=== PATIENT | male | born 1990 ===

== ENCOUNTER 2020-11-23 02:26 | Emergency (ER) | payer OTHER, SELFPAY ==
--- NOTE | ~2020-11-23 | US_ITS ---
EXAMINATION: US SOFT TISSUE, CLAVICLE CLINICAL INFORMATION: Left mid clavicular lump for 2 days, tender to touch. COMPARISON: None TECHNIQUE: Ultrasound of the soft tissues along the left clavicle was performed in a targeted fashion FINDINGS: There are 2 well-circumscribed hypoechoic structures along the mid clavicle. One structure measures 1.8 x 1.0 x 1.4 cm, the other measures 1.0 x 0.9 x 0.9 cm. Central and eccentric blood flow is present. These likely represent enlarged lymph nodes. US/US soft tiss head and/or neck IMPRESSION: The palpable lumps adjacent to the left clavicle represent mildly enlarged lymph nodes.
[2020-11-23 02:45] VITALS: BP 128/61; PULSE 64; RESP 18; TEMP 36.9; O2SAT 98; BMI 50.1
[2020-11-23 02:49] VITALS: BP 122/66; PULSE 64; RESP 18; TEMP 36.9; O2SAT 98
--- NOTE | 2020-11-23 04:17 | ED_ITS ---
HPI - General Adult General Chief complaint: General Medical Stated complaint: lump on clavicle Time Seen by Provider: 11/23/20 04:16 Source: patient Mode of arrival: ambulatory History of Present Illness HPI narrative: 30-year-old male without significant past medical history who presents with noticing to masses at his left clavicle approximately 2 days ago and he denies any associated fever, chills, night sweats, unexplained weight los s, cough, decrease in appetite, early satiety, pain in the stomach and denies any trauma to the area. Related Data Home Medications Medication Instructions Recorded Confirmed No Known Home Meds 11/14/19 11/14/19 Allergies Allergy/AdvReac Type Severity Reaction Status Date / Time aspirin [ASPIRIN] Allergy Unknown UNKNOWN, Unverified 11/14/19 16:07 Hives penicillin V Allergy Unknown Hives Unverified 11/14/19 16:07 Penicillins [PENICILLINS] Allergy Unknown UNKNOWN Unverified 11/14/19 16:07 Shellfish Allergy Unknown Anaphylaxis Uncoded 11/14/19 16:07 Review of Systems Review of Systems: Pertinent positives and negatives as stated in HPI 10 point review of systems is otherwise negative. PMFSH Past Medical History Source: nursing notes reviewed Medical History Morbid obesity Syndesmotic disruption of right ankle Family History Family History Father Diabetes Cirrhosis Mother No problems noted. Maternal Grandmother Diabetes Social History Social History Alcohol intake: never Patient Tobacco Use Status: Never used Tobacco Use of substances other than those prescribed or required for medical reasons: No Advance Directives: No Advance Directives Information Provided: Yes Physical Exam Vital Signs: Vital Signs: Last Vital Signs Temp 98.4 F 11/23/20 02:49 Pulse 66 11/23/20 05:59 Resp 16 11/23/20 05:59 BP 120/54 L 11/23/20 05:59 Pulse Ox 97 11/23/20 05:59 Body Mass Index 50.1 VITAL SIGNS: Reviewed. GENERAL: Obese, Well developed, well nourished, in no acute distress. HEAD: Normocephalic/atraumatic EYES: PERRLA, EOMI OROPHARYNX: no oral lesions noted, posterior pharynx clear and non-erythematous without noted tonsillar enlargement/erythema/exudates NECK: Supple, no adenopathy, palpation along left clavicle yields an approximate 2 cm mobile mass that is non erythematous and without induration but with slight tenderness on palpation, there is also a noted approximate 3 cm mobile mass immediate next to the other mass without erythema or induration but ten derness on palpation. LUNGS: Normal breath sounds. No adventitious sounds or accessory muscle use. S pO2<98> CARDIOVASCULAR: Regular rate and rhythm without noted murmurs ABDOMEN: Soft, non-tender, non-distended with bowel sounds. SKIN: Inspection of the skin reveals no rashes NEUROLOGIC: Alert and oriented x 4. Strength and sensation to light touch were grossly intact x 4. Course Course Course Narrative: 30-year-old male with history and clinical presentation suggestive of possible reactive adenopathy but will obtain ultrasound and basic labs. There are no B symptoms. Review of all investigations without acute findings other than to enlarged lymph nodes. Although felt to be reactive patient was strongly encouraged to follow- up with his primary care provider for re-evaluation further outpatient management. Medical Decision Making Lab Data Result diagrams: 11/23/20 04:24 11/23/20 04:24 Labs: Lab Results 11/23/20 11/23/20 Range/Units 04:24 04:24 WBC 10.0 (4.8-10.8) X10*3/uL RBC 4.16 L (4.60-5.80) X10*6/uL Hgb 12.0 L (14.0-18.0) g/dl Hct 36.8 L (42-52) % MCV 88.5 (80-98) fL MCH 28.8 (27.0-33.0) pg MCHC 32.6 (31.0-36.0) g/dl RDW 12.5 (11.0-16.0) % Plt Count 269 (160-400) X10*3/uL MPV 10.3 (9.4-12.4) fL Immature Gran % (Auto) 0.2 (0.0-0.4) % Neut % (Auto) 59.5 (45-73) % Lymph % (Auto) 27.1 (20-40) % Will % (Auto) 10.1 (2-11) % Eos % (Auto) 2.6 (0-4) % Baso % (Auto) 0.5 (0-2) % Lymph # (Auto) 2.7 (1.2-4.9) X10*3/uL Will # (Auto) 1.0 (0.1-1.2) X10*3/uL Eos # (Auto) 0.3 (0.0-0.4) X10*3/uL Baso # (Auto) 0.1 (0.0-0.2) X10*3/uL Abs Immat Gran (auto) 0.02 (0.00-0.03) X10*3/uL Absolute Neuts (auto) 5.9 (2.0-8.3) X10*3/uL Absolute Nucleated RBC 0.000 (0.0-0.012) X10*3/uL Nucleated RBC % (auto) 0.0 (0.0-0.2) /100WBC Sodium 140 (135-145) mmol/L Potassium 4.0 (3.3-5.1) mmol/L Chloride 109 H (96-108) mmol/L Carbon Dioxide 24 (22-29) mmol/L Anion Gap 11 L (12-20) BUN 15 (9-16) mg/dL Creatinine 0.80 (0.5-1.4) mg/dL Estim Creat Clear Calc 219.0 Estimated GFR > 60 Random Glucose 109 (60-115) mg/dL Calcium 8.9 (8.4-10.2) mg/dL Total Bilirubin 0.3 (0.0-1.0) mg/dL AST 16 (5-37) U/L ALT 17 (0-40) U/L Alkaline Phosphatase 54 (39-117) U/L Total Protein 6.7 (6.5-8.0) g/dL Albumin 3.9 (3.5-5.0) g/dL Discharge Plan Discharge Clinical Impression: Adenopathy Patient Disposition: Home, Self-Care Instructions: Lymphadenopathy (ED) Additional Instructions: Follow-up with your primary care provider on Tuesday morning for re-evaluation and further outpatient management. Recommend taking over the counter Tylenol/ibuprofen as needed for pain control. Return to the ER for acute worsening symptoms. Referrals: lAy Guardado, [employer] [Primary Care Provider] - 2 days (Left supraclavicular adenopathy without B symptoms)
[2020-11-23 04:28] LABS: Basophils Absolute Auto 0.1 X10*3/uL (0.0-0.2); Basophils Percent Auto 0.5 % (0-2); Eosinophils Absolute Auto 0.3 X10*3/uL (0.0-0.4); Eosinophils Percent Auto 2.6 % (0-4); Hematocrit 36.8 % (42-52); Imm Gran Abs Auto 0.02 X10*3/uL (0.00-0.03); Imm Gran Pct Auto 0.2 % (0.0-0.4); Lymphocytes Absolute Auto 2.7 X10*3/uL (1.2-4.9); Lymphocytes Percent Auto 27.1 % (20-40); MANUAL DIFF FLAG NO; Mean Corpuscular HGB Conc 32.6 g/dl (31.0-36.0); Mean Corpuscular Hemoglobin 28.8 pg (27.0-33.0); Mean Corpuscular Volume 88.5 fL (80-98); Mean Platelet Volume 10.3 fL (9.4-12.4); Monocytes Percent Auto 10.1 % (2-11); Neutrophils Absolute Auto 5.9 X10*3/uL (2.0-8.3); Neutrophils Percent Auto 59.5 % (45-73); Platelet Count 269 X10*3/uL (160-400); Red Blood Count 4.16 X10*6/uL (4.60-5.80); Red Cell Distribution Width 12.5 % (11.0-16.0)
[2020-11-23 04:48] LABS: Alanine Aminotransferase 17 U/L (0-40); Albumin Level 3.9 g/dL (3.5-5.0); Alkaline Phosphatase 54 U/L (39-117); Anion Gap 11 (12-20); Aspartate Amino Transferase 16 U/L (5-37); Bilirubin Total 0.3 mg/dL (0.0-1.0); Blood Urea Nitrogen 15 mg/dL (9-16); Calcium 8.9 mg/dL (8.4-10.2); Carbon Dioxide 24 mmol/L (22-29); Chloride 109 mmol/L (96-108); Estimated Glomerular Filt Rate > 60; Glucose Random 109 mg/dL (60-115); Sodium 140 mmol/L (135-145); Total Protein 6.7 g/dL (6.5-8.0)
[2020-11-23 05:59] VITALS: BP 120/54; PULSE 66; RESP 16; O2SAT 97
--- NOTE | 2020-11-23 06:43 | PC.NURSE ---
Pt alert and oriented x4, calm and cooperative. Pt denies pain at this time. Pt educated on dc papers and stated an understanding. No IV in place. Vitals stable. Pt ambulated to private car with friend without issues.
== END 2020-11-23 06:45 | disposition home or self-care (01) ==
PROVIDERS: Emergency Provider Student in an Organized Health Care Education/Training Program; PCP Nurse Practitioner Family
DX: R59.0 Localized enlarged lymph nodes (principal)
CPT/HCPCS: 36415; 76536; 80053; 85025; 99284

== ENCOUNTER 2021-01-19 09:15 | Outpatient (REF) | payer OTHER, SELFPAY ==
--- NOTE | ~2021-01-19 | US_ITS ---
EXAMINATION: US SOFT TISSUE NECK CLINICAL INFORMATION: Supraclavicular lymphadenopathy. COMPARISON: Previous exam November 2020. TECHNIQUE: Ultrasound of the left supraclavicular region is performed with high- frequency ng-scale imaging and color Doppler. FINDINGS: There are 2 left supraclavicular lymph nodes measuring 0.9 x 0.6 x 0.9 cm and 1.4 x 0.5 x 1.5 cm. The latter lymph node is slightly enlarged. These demonstrate normal ultrasound morphology and flow. Compared to previous exam November 2020, lymph nodes demonstrate decreased renal cortical thickening and slit-like hilum and more normal ultrasound morphology. These demonstrate normal hilar flow. US/US soft tiss head and/or neck IMPRESSION: Two left supraclavicular lymph nodes. These demonstrate more normal ultrasound morphology than seen November 2020. One lymph node remains slightly enlarged.
== END 2021-01-19 09:16 | disposition home or self-care (01) ==
LOC: HO.HMGCX 09:15
PROVIDERS: PCP Nurse Practitioner Family; Visit Provider Nurse Practitioner Family
DX: R59.0 Localized enlarged lymph nodes (principal)
CPT/HCPCS: 76536

== ENCOUNTER 2021-02-08 10:16 | Emergency (ER) | payer OTHER, SELFPAY ==
[2021-02-08 11:05] VITALS: BP 144/53; PULSE 74; RESP 18; TEMP 37.1; O2SAT 96; BMI 52.2
[2021-02-08 11:24] LABS: COVID-19 Test Positive (Negative)
--- NOTE | 2021-02-08 14:08 | ED.URI ---
HPI - URI/Sore Throat General Chief Complaint: Upper Respiratory Symptoms Stated Complaint: sore throat,headache Time Seen by Provider: 02/08/21 14:00 History of Present Illness HPI Narrative: Positive for cough runny nose and headache for 2 days Related Data Previous Rx's Medication Instructions Recorded trazodone 50 mg tablet 50 mg PO BEDTIME PRN 30 Days #30 02/11/21 tab Allergies Allergy/AdvReac Type Severity Reaction Status Date / Time aspirin [ASPIRIN] Allergy Unknown UNKNOWN, Verified 11/27/20 13:19 Hives penicillin V Allergy Unknown Hives Verified 11/27/20 13:19 Penicillins [PENICILLINS] Allergy Unknown UNKNOWN Verified 11/27/20 13:19 Shellfish Allergy Unknown Anaphylaxis Uncoded 11/14/19 16:07 Review of Systems Review of Systems: Positive for runny nose sore throat mild headache cough Negatives are no fever no chills no dizziness weakness noted fainting no feeling faint no stiff neck no neck pain no chest pain no shortness of breath no abdominal pain no nausea vomiting or diarrhea no difficulty breathing or swallowing Yes all other systems are reviewed and are negative [facility] Past Medical History Source: nursing notes reviewed Medical History Lymphadenopathy, supraclavicular Morbid obesity Syndesmotic disruption of right ankle Family History Family History Father Diabetes Cirrhosis Mother No problems noted. Maternal Grandmother Diabetes Social History Social History Housing: Condominium Alcohol intake: never Patient Tobacco Use Status: Never used Tobacco e-Cigarette/Vaping Use: Never Used Second Hand Smoke Exposure: No Advance Directives: No Advance Directives Information Provided: No service: No Current occupational status: unemployed Physical Exam Vital Signs: Vital Signs: Last Vital Signs Temp 98.7 F 02/08/21 11:05 Pulse 74 02/08/21 11:05 Resp 18 02/08/21 11:05 BP 144/53 H 02/08/21 11:05 Pulse Ox 96 02/08/21 11:05 BMI result Body Mass Index 52.2 General appearance is no acute distress The eyes no redness or discharge The pharynx no redness swelling or exudate, mucous membranes moist Neck is supple Chest clear to auscultation bilateral Heart no murmur Extremities full range of motion x4 Course Course Course Narrative: Well-appearing patient COVID positive, normal pharynx, clear lungs, is discharged with warnings to quarantine MDM - URI/Sore Throat Lab Data Labs: Lab Results 02/08/21 Range/Units 11:08 COVID-19 (MAYTE) Positive A (Negative) COVID-19 Clin Com See Note Discharge Plan Discharge Clinical Impression: COVID-19 Patient Disposition: Home, Self-Care Additional Instructions: You tested positive for COVID You are not ill appearing now but being overweight is risk factor for worsening of COVID so I recommended you follow with anti clonal antibiotic treatment with is available in a clinic and we provided you the form Return to the ER any time for difficulty breathing any worse condition or any concerns Prescriptions: No Action trazodone 50 mg tablet 50 mg PO BEDTIME PRN (Reason: sleep) 30 Days Qty: 30 RF: 0 Interventions: ED Discharge Assessment Last Done: 02/08/21 14:24 Discharge Date/Time: 02/08/21 14:26
== END 2021-02-08 14:26 | disposition home or self-care (01) ==
PROVIDERS: Emergency Provider Emergency Medicine; PCP Nurse Practitioner Family
DX: U07.1 COVID-19 (principal)
CPT/HCPCS: 36415; 87635; 99283

== ENCOUNTER 2023-01-25 10:42 | Outpatient (AMB) | payer OTHER, SELFPAY ==
--- NOTE | 2023-01-25 10:59 | MHC.PC.OV ---
Vital Signs 01/25/23 11:03 Height 6 ft Weight 369 lb BMI 50.0 BP 126/80 Blood Pressure Location Rt brachial Position Sitting Pulse 63 Pulse Source Pulse Oximeter Pulse Oximetry (%) 98 Oxygen Delivery Method Room Air Intake Visit Reasons: Physical Exam Intake Note: Patient here for physicial exam. no new issues. Allergies aspirin [ASPIRIN] Allergy (Unknown, Verified 01/25/23 11:03) UNKNOWN, Hives penicillin V Allergy (Unknown, Verified 01/25/23 11:03) Hives Penicillins [PENICILLINS] Allergy (Unknown, Verified 01/25/23 11:03) UNKNOWN Shellfish Allergy (Unknown, Uncoded 01/25/23 11:03) Anaphylaxis Medication List - Last Reconciled 01/25/23 by SHEA Mejia-ANA trazodone 50 mg PO BEDTIME PRN 30 days Tobacco use date assessed: 01/25/23 Dental Screening Dental Screen Date: 01/25/23 Did you have a dental visit in the last 12 months?: Yes Did you have a dental problem in the last 6 months where you did not have access to dental care?: No Was dental information given to patient?: Patient has dentist HPI Physical Exam HPI Details Pt is here for a PE. Will order labs. Pt has been very active at the gym and losing weight. [facility] Medical History Lymphadenopathy, supraclavicular Morbid obesity Syndesmotic disruption of right ankle Family History Father Diabetes Cirrhosis Mother No problems noted. Maternal Grandmother Diabetes Social History Housing: Condominium Alcohol intake: never Patient Tobacco Use Status: Never used Tobacco e-Cigarette/Vaping Use: Never Used Second Hand Smoke Exposure: No service: No Current occupational status: unemployed Cognitive needs: No Hearing needs: No Vision needs: No Questionnaire Thrive Questionnaire Date Thrive assessed: 11/27/20 AUDIT C Alcohol Use Questionnaire (AUDIT-C) 1. How often do you have a drink containing alcohol?: Never 3. How often do you have six or more drinks on one occasion?: Never Total Score: 0 Score Reviewed/Action Taken: No Review of Systems Const Denies chills and Denies fever(s) Eyes Denies blurry vision ENT Denies vertigo, Denies dizziness and Denies sore throat Card Denies chest pain at rest, Denies chest pain with activity, Denies diaphoresis, Denies dyspnea and Denies dyspnea on exertion Resp Denies cough, Denies dyspnea, Denies dyspnea on exertion and Denies wheezing GI Denies abdominal pain, Denies melena, Denies hematochezia, Denies constipation, Denies diarrhea and Denies loose stools Denies hematuria Musc Denies numbness and Denies tingling Skin/Breast Denies lesions Neuro Denies vertigo, Denies dizziness, Denies numbness and Denies tingling Psych Denies anxiety, Denies depression, Denies homicidal ideation, Denies suicidal ideation and Denies other (substance abuse) Aller/Immun Denies wheezing Physical exam (Primary Care) Vital Signs: Last Vital Signs Pulse 63 01/25/23 11:03 BP 126/80 01/25/23 11:03 Pulse Ox 98 01/25/23 11:03 Oxygen Delivery Method Room Air 01/25/23 11:03 BMI result Body Mass Index 50.0 Tobacco/Smoking Status: Tobacco use Status Tobacco use date assessed 01/25/23 01/25/23 11:05 Patient Tobacco Use Status Never used Tobacco 01/25/23 11:00 e-Cigarette/Vaping Use Never Used 01/25/23 11:00 Thrive Assessment: Date of Thrive Assessment Date Thrive assessed 11/27/20 01/25/23 11:00 Const General: cooperative Nutritional Appearance: obese morbidly obese Orientation/consciousness: patient oriented x3 HENMT Head: Yes normal to inspection, Yes normocephalic and Yes atraumatic Ears: TM's normal bilaterally Eyes General: appearance normal, both eyes and all related structures Alignment and Position: alignment normal and position normal Neck Neck: Yes normal visual inspection and Yes no lymphadenopathy Thyroid: Thyroid normal Resp Effort & Inspection: normal respiratory effort Auscultation: clear to auscultation bilaterally Cardio Rate: regular rate Rhythm: regular rhythm Heart sounds: S1 normal heart sound present, S2 normal heart sound present and no murmurs GI Palpation (GI): Soft to palpation and nontender Auscultation: normal bowel sounds Male General Exam: Yes normal external exam Penis: normal penis Scrotum: scrotum normal, testes descended bilaterally and no inguinal hernias Testes: no testicular mass Skin Rashes: no rashes Neuro General: patient oriented x3, moves all extremities, no focal motor deficits and deep tendon reflexes 2+ bilaterally Romberg Test: Negative Psych Appearance: grossly normal Mental Status: mental status grossly normal Speech and movement: Normal speech and movement present Affect: normal affect Attitude: cooperative Thought process: Normal thought process present Thought content: Normal thought content present Insight: Good insight present (Psych) Judgement: Good judgement present (Psych) Assessment and Plan Assessment & Plan (1) Physical exam: Code(s): Z. - Encounter for general adult medical examination without abnormal findings Plan The patient agreed to the use of a director of medical staff services for this encounter. Scribed for EDMUNDO Cope by Trena Fields director of medical staff services, on 01/25/2023 at 11:10 EST. Orders: Orders UA CC w/rflx Micro + Cult Today Z00.00 - Encounter for general adult medical examination without abnormal findings Complete Blood Count Auto Diff Today Z00.00 - Encounter for general adult medical examination without abnormal findings Comprehensive [place]. Panel Fast Today Z00.00 - Encounter for general adult medical examination without abnormal findings TSH reflex Free T4 Today Z00.00 - Encounter for general adult medical examination without abnormal findings Lipid Panel Today Z00.00 - Encounter for general adult medical examination without abnormal findings Coding Level of Care Code Est Pt Prev Care 18-39y(09753) Diagnoses Physical exam Z00.00
[2023-01-25 11:03] VITALS: BP 126/80; PULSE 63; O2SAT 98; BMI 50.0
== END 2023-01-25 12:06 | disposition home or self-care (01) ==
PROVIDERS: PCP Nurse Practitioner Family; Visit Provider Nurse Practitioner Family
DX: Z00.00 Encounter for general adult medical examination without abnormal findings (principal)
CPT/HCPCS: 99395

== ENCOUNTER 2023-01-25 11:21 | Outpatient (REF) | payer OTHER, SELFPAY ==
[2023-01-25 13:19] LABS: MANUAL DIFF FLAG NO
[2023-01-25 13:33] LABS: Appearance Urine Clear; Color Urine Yellow; Glucose Urine UA Negative (Negative); Leukocyte Esterase Urine Negative (Negative); Nitrite Urine Negative (Negative); PH 5.5 (5.0-9.0); Specific Gravity - Urine >= 1.030 (1.005-1.025); Urine Blood Negative (Negative); Urine Ketones Trace mg/dL (Negative); Urine Protein Negative (Neg-Trace)
[2023-01-25 13:34] LABS: Basophils Percent Auto 0.5 % (0-2); Eosinophils Absolute Auto 0.2 X10*3/uL (0.0-0.4); Eosinophils Percent Auto 2.3 % (0-4); Hematocrit 40.8 % (42.0-52.0); Imm Gran Abs Auto 0.02 X10*3/uL (0.00-0.03); Imm Gran Pct Auto 0.2 % (0.0-0.4); Lymphocytes Absolute Auto 2.3 X10*3/uL (1.2-4.9); Lymphocytes Percent Auto 27.8 % (20-40); Mean Corpuscular HGB Conc 31.9 g/dl (31.0-36.0); Mean Corpuscular Hemoglobin 28.1 pg (27.0-33.0); Mean Corpuscular Volume 88.1 fL (80.0-98.0); Monocytes Absolute Auto 0.9 X10*3/uL (0.1-1.2); Monocytes Percent Auto 10.3 % (2-11); Neutrophils Absolute Auto 4.9 x10*3/uL (2.0-8.3); Neutrophils Percent Auto 58.9 % (45-73); Platelet Count 296 X10*3/uL (160-400); Red Blood Count 4.63 X10*6/uL (4.60-5.80); Red Cell Distribution Width 12.8 % (11.0-16.0); White Blood Count 8.3 X10*3/uL (4.8-10.8)
[2023-01-25 18:13] LABS: Alanine Aminotransferase 17 U/L (0-40); Albumin Level 4.2 g/dL (3.5-5.0); Alkaline Phosphatase 51 U/L (39-117); Anion Gap 10 (12-20); Aspartate Amino Transferase 19 U/L (5-37); Bilirubin Total 0.3 mg/dL (0.0-1.0); Blood Urea Nitrogen 13 mg/dL (9-16); Calcium 9.1 mg/dL (8.4-10.2); Carbon Dioxide 26 mmol/L (22-29); Chloride 108 mmol/L (96-108); Cholesterol 163 mg/dL (<200); Estimated Glomerular Filt Rate > 60; Glucose Fasting 94 mg/dL (60-99); HDL Cholesterol 33 mg/dL (>40); LDL Cholesterol Calculated 108 mg/dL (<100); Potassium 4.2 mmol/L (3.3-5.1); Sodium 140 mmol/L (135-145); Total Protein 7.6 g/dL (6.5-8.0); Triglycerides 114 mg/dL (<150)
[2023-01-25 18:30] LABS: TSH reflex Free T4 2.11 uIU/mL (0.32-4.0)
== END 2023-01-25 11:22 | disposition home or self-care (01) ==
LOC: HO.HMGCLDS 11:21
PROVIDERS: PCP Nurse Practitioner Family; Visit Provider Nurse Practitioner Family
DX: Z00.00 Encounter for general adult medical examination without abnormal findings (principal)
CPT/HCPCS: 36415; 80053; 80061; 81003; 84443; 85025

== ENCOUNTER 2024-01-30 09:49 | Outpatient (REF) | payer OTHER, SELFPAY | END 2024-01-30 09:50 | disposition home or self-care (01) | LOC: HO.HMGCX 09:49 | PROVIDERS: PCP Nurse Practitioner Family; Visit Provider Nurse Practitioner Family | DX: Z00.00 Encounter for general adult medical examination without abnormal findings (principal); M54.9 Dorsalgia, unspecified; M79.609 Pain in unspecified limb | CPT/HCPCS: 72100; 96127; 99395 ==

== ENCOUNTER 2024-01-30 09:49 | Outpatient (AMB) | payer OTHER, SELFPAY ==
--- NOTE | 2024-01-30 09:50 | A.OFFPC_ITS ---
Vital Signs 01/30/24 09:52 Height 6 ft Weight 346 lb BMI 46.9 BP 122/80 Blood Pressure Location Rt brachial Position Sitting Pulse 60 Pulse Source Pulse Oximeter Pulse Oximetry (%) 98 Intake Visit Reasons: PE Intake Note: pt is here for PE Documentation Nurse Required: No Accompanied by: Self / Same As Patient Allergies aspirin [ASPIRIN] Allergy (Unknown, Verified 01/30/24 09:52) UNKNOWN, Hives penicillin V Allergy (Unknown, Verified 01/30/24 09:52) Hives Penicillins [PENICILLINS] Allergy (Unknown, Verified 01/30/24 09:52) UNKNOWN Shellfish Allergy (Unknown, Uncoded 01/25/23 11:03) Anaphylaxis Medication List - Last Reconciled 01/30/24 by EDMUNDO Mejia prednisone 50 mg PO DAILY 5 days trazodone 50 mg PO BEDTIME PRN 30 days Tobacco use date assessed: 01/30/24 Dental Screening Dental Screen Date: 01/30/24 Did you have a dental visit in the last 12 months?: Yes Did you have a dental problem in the last 6 months where you did not have access to dental care?: No Was dental information given to patient?: Patient has dentist HPI PE HPI Details History of Present Illness The patient is a 33-year-old male presenting with lower back pain accompanied by radicular symptoms extending down the left lower extremity to the posterior aspect, reaching near the calf. The symptoms include exacerbated pain and discomfort on heel walking, while toe walking does not significantly increase discomfort. There was no indication of symptoms associated with cauda equina syndrome. He denies experiencing any chest pain or shortness of breath and reports no presence of fevers, chills, blood in stool, constipation, or diarrhea. There are no current or ongoing signs of depression or anxiety, nor any suicidal or homicidal ideations. The patient has noted a negative impact on his daily activities due to the pain. Past treatments or interventions prior to this visit were not discussed. Health Maintenance - Encouraged the patient to obtain fasti Crackle labs in the near future. - Advised on managing obesity and associ ated risks. Social History Review of Systems - Neurological: Denies symptoms of cauda equina syndrome. - Cardiovascular: Denies chest pain or s hortness of breath. - Gastrointestinal: Denies blood in the stool, constipation, or diarrhea. - Psychiatric: Denies ongoing depression or anxiety, denies suicidal or homici yo ideation. Physical Exam General: Cooperative, healthy appearing, comfortable, no acute distress and well developed. Patient is morbidly obese. Orientation: Patient oriented x3 Limitations: No limitations Head: Normal to inspection Ears: Hearing grossly normal bilaterally Nose: Normal external nose present Face and sinus: Normal facial exam Eyes: Appearance normal, both eyes and all related structures Neck: Normal visual inspection and Yes full ROM Respiratory: Normal respiratory effort and able to speak in complete sentences. Clear to auscultation bilaterally Cardiovascular: Regular rate and rhythm. Normal S1 and S2 GI: Normal to inspection. Soft to palpation and nontender Skin: No rashes or lesions noted Neuro: Patient oriented x3. Positive patellar reflexes bilaterally. Extremities: Normal to inspection. Radicular symptoms down left lower extremity, posterior aspect, stopping closer to calf. Straight leg raises were negative. Results Plan - Initiate a short course of prednisone for management of lower back pain with radicular symptoms. - Order an X-ray of the lower back to as sess for any structural abnormalities. - Follow-up with fasting labs to assess general health status. Patient was informed and verbally consented to the use of an ambient scribe for clinic note documentation during this visit. Discussion Notes During the consultation, I informed the patient about the management of his lower back pain with radicular symptoms. We discussed starting a short course of prednisone to manage inflammation and alleviate symptoms. Additionally, I explained the rationale and importance of obtaining an X-ray to rule out any spinal pathology that might be contributing to his symptoms. We discussed the importance of addressing his obesity, and I advised obtaining fasting labs to monitor other health parameters. The patient agreed with the plan, and I provided information about potential side effects of prednisone. Patient Instructions - Begin the prescribed course of prednis one as directed. - Schedule and complete an X-ray of the lower back. - Plan to have fasting labs done soon to monitor health status. - Continue managing weight and incorpora te healthier lifestyle changes. [facility] Medical History (Updated 01/30/24 @ 10:15 by Aly Guardado, CLERICAL ADMINISTRATIVE ASSISTANT-) Lymphadenopathy, supraclavicular Morbid obesity Syndesmotic disruption of right ankle Surgical History (Updated 01/30/24 @ 09:53 by Joshua Ram [facility]) History of ankle surgery Family History (Updated 01/30/24 @ 09:54 by Joshua Ram [facility]) Father Diabetes Cirrhosis Mother No problems noted. 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 [id number] - PHQ-9 Billing: Patient declined-do not bill Source: Developed by Drs. Osmar Osorio, Yesica Mckeon, Joe Marin and colleagues, with an educational marty from [employer]. Thrive Questionnaire Date Thrive assessed: 01/27/24 I am a: Patient What is your living situation today?: I choose not to answer this question Within the past 12 months, did the food you bought not last and you didn't have the money to get more?: Sometimes True Within the past 12 months, did you worry whether your food would run out before you got money to buy more?: Sometimes True Do you have trouble paying for medicines?: Yes Do you have trouble getting transportation to medical appointments?: No Do you have trouble paying your heating and electricity bill?: No Do you have trouble taking care of your child, family member or friend?: No Do you have trouble with day-to-day activities such as bathing, preparing meals, shopping, managing finances, etc.?: No Are you currently unemployed and looking for a job?: No Are you interested in more education?: I choose not to answer this question Currently or been in a relationship where the following occur: No concerns reported THRIVE Score: 2 AUDIT C Alcohol Use Questionnaire (AUDIT-C) 1. How often do you have a drink containing alcohol?: Never 2. How many drinks containing alcohol do you have on a typical day when you are drinking?: 1 or 2 3. How often do you have six or more drinks on one occasion?: Never Total Score: 0 Score Reviewed/Action Taken: No BERTA-7 AMB Questionnaire BERTA-7 Feeling nervous, anxious, or on edge: 0 = Not at all Not being able to stop or control worryin = Not at all Worrying too much about different things: 0 = Not at all Trouble relaxin = Not at all Being so restless that it is hard to sit still: 0 = Not at all Becoming easily annoyed or irritable: 0 = Not at all Feeling afraid as if something awful might happen: 0 = Not at all Total BERTA-7 score (0-4 normal; 5-9 mild; 10-14 moderate; 15-21 severe): 0 Source: Developed by Drs. Osmar Osorio, Yesica Mckeon, Joe Marin and colleagues, with an educational marty from [employer]. BERTA-7 Assessment Billing BERTA-7 Assessment Tool: BERTA-7 Assessment [id number] Physical exam (Primary Care) Vital Signs: Last Vital Signs Pulse 60 01/30/24 09:52 BP 122/80 01/30/24 09:52 Pulse Ox 98 01/30/24 09:52 BMI result Body Mass Index 46.9 Tobacco/Smoking Status: Tobacco use Status Tobacco use date assessed 01/30/24 01/30/24 09:55 Patient Tobacco Use Status Never used Tobacco 01/30/24 09:50 e-Cigarette/Vaping Use Never Used 01/30/24 09:50 Thrive Assessment: Date of Thrive Assessment Date Thrive assessed 01/27/24 01/30/24 09:50 Currently or been in a relationship where the following occur: No concerns reported Coding Level of Care Code Est Pt Prev Care 18-39y(15450) Diagnoses Physical exam Z00.00 Pain of back and lower extremity M54.9; M79.609 Additional Codes BERTA-7 Assessment Billing - BERTA-7 Assessment Tool: BERTA-7 Assessment 71029 ([id number]) Assessment & Plan Assessment & Plan (1) Physical exam: Code(s): Z00.00 - Encounter for general adult medical examination without abnormal findings Category: Medical (2) Pain of back and lower extremity: Code(s): M54.9 - Dorsalgia, unspecified; M79.609 - Pain in unspecified limb Category: Medical Plan . Orders: Orders Comprehensive [place]. Panel Fast Today Z00.00 - Encounter for general adult medical examination without abnormal findings TSH reflex Free T4 Today Z00.00 - Encounter for general adult medical examinati on without abnormal findings UA CC w/rflx Micro + Cult Today Z00.00 - Encounter for general adult medical examination without abnormal findings XR lumbar spine 2-3V Today M54.9 - Dorsalgia, unspecified, M79.609 - Pain in unspecified limb Complete Blood Count Auto Diff Today Z00.00 - Encounter for general adult medical examination without abnormal findings Lipid Panel Today Z00.00 - Encounter for general adult medical examination without abnormal findings Medications: New prednisone 50 mg PO DAILY 5 days 5 tabs 0RF
[2024-01-30 09:52] VITALS: BP 122/80; PULSE 60; O2SAT 98; BMI 46.9
== END 2024-01-30 11:11 | disposition home or self-care (01) ==
LOC: HO.HMCC 09:49
PROVIDERS: PCP Nurse Practitioner Family; Visit Provider Nurse Practitioner Family
DX: Z00.00 Encounter for general adult medical examination without abnormal findings (principal); M54.9 Dorsalgia, unspecified; M79.609 Pain in unspecified limb

== ENCOUNTER 2024-02-29 07:16 | Outpatient (AMB) | payer OTHER, SELFPAY ==
--- NOTE | 2024-02-29 07:53 | A.OFFVIS_ITS ---
Intake Visit Reasons: [phone] Allergies aspirin [ASPIRIN] Allergy (Unknown, Verified 01/30/24 09:52) UNKNOWN, Hives penicillin V Allergy (Unknown, Verified 01/30/24 09:52) Hives Penicillins [PENICILLINS] Allergy (Unknown, Verified 01/30/24 09:52) UNKNOWN Shellfish Allergy (Unknown, Uncoded 01/25/23 11:03) Anaphylaxis Medication List - Last Reconciled 02/29/24 by Aly Guardado [facility] meloxicam 15 mg PO DAILY PRN prednisone 50 mg PO DAILY 5 days trazodone 50 mg PO BEDTIME PRN 30 days HPI HPI [id number]: Details: History of Present Illness The patient is a 33-year-old male presenting with persistent lower transverse back pain radiating to bilateral lower extremities. He reports some relief with prednisone but no improvement with meloxicam. Early January an X-ray was obtained, though it remains unread. Pain persists with associated numbness and tingling down the legs. The patient denies any signs of cauda equina syndrome. Review of Systems - Musculoskeletal: Reports ongoing shooting pains in lower back radiating to legs. - Neurological: Reports numbness and tingling in bilateral lower extremities. Denies signs of cauda equina syndrome. Plan - Discontinue meloxicam due to lack of effectiveness. - Initiate a dexamethasone taper to address inflammation and manage pain. - Encourage continuation of stretching exercises as part of symptom management. - Follow up with radiology to expedite the reading of the lumbar spine X-ray. - Consider an MRI of the spine if symptoms persist or worsen to further evaluate radiculopathy. Discussion Notes I discussed with the patient the change from meloxicam to a dexamethasone taper, emphasizing the potential benefits of inflammation reduction and pain management. I explained the plan to follow up on the unread X-ray, which could provide additional diagnostic insights, and proposed an MRI as a potential future step if pain and associated symptoms continue. We talked about the importance of continuing stretching exercises to maintain muscle flexibility and potentially alleviate symptoms. The patient understood and agreed with the proposed management plan. Patient Instructions - Stop taking meloxicam immediately. - Start the dexamethasone taper as prescribed. - Continue with regular stretching exercises. - Be patient as we arrange for the X-ray to be read. - Consider an MRI if pain persists. - Follow up as needed or if symptoms worsen. [facility] Medical History (Updated 02/29/24 @ 07:54 [facility] Lymphadenopathy, supraclavicular Morbid obesity Syndesmotic disruption of right ankle Surgical History (Updated 01/30/24 @ 09:53 by Joshua Ram [facility]) History of ankle surgery Family History (Updated 01/30/24 @ 09:54 by Joshua Ram CMA) Father Diabetes Cirrhosis Mother No problems noted. 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 Current occupational exposures/hazards: No Cognitive needs: No Hearing needs: No Vision needs: No Telehealth Telehealth Telehealth Platform: [facility] Location of provider rendering services: practice address Location of patient: address on file Patient Identification confirmed using: Name, : Yes Telehealth method: video Patient verbally consented to treatment: Yes Patient verbally consented to billing insurance company: Yes Patient informed of any privacy concerns related to visit: Yes Minutes spent on Phone/Video with Pt.: 12 Assessment & Plan Assessment & Plan (1) Chronic radicular pain of lower back: Code(s): M54.16 - Radiculopathy, lumbar region; G89.29 - Other chronic pain Category: Medical Plan . Medications: New dexamethasone 1 tab 3 times a day for 3 days, 1 tab twice a day for 3 days, 1 tab daily for 3 days 4 mg PO DAILY 18 tabs 0RF 9 days Discontinued meloxicam Discontinued Reason: Doctor's Order 15 mg PO DAILY PRN 30 tabs 1RF pain prednisone Discontinued Reason: Doctor's Order 50 mg PO DAILY 5 days 5 tabs 0RF Coding Level of Care Code Tele Est Pt Level 3 (08840) Diagnoses Chronic radicular pain of lower back M54.16; G89.29
== END 2024-02-29 08:25 | disposition home or self-care (01) ==
LOC: HO.HMCC 07:16
PROVIDERS: PCP Nurse Practitioner Family; Visit Provider Nurse Practitioner Family
DX: M54.16 Radiculopathy, lumbar region (principal); G89.29 Other chronic pain